=== PATIENT | male | born 1945 | race Caucasian/White ===

== ENCOUNTER 2021-05-23 09:43 | Outpatient (CLI) | payer MEDICARE, SELFPAY ==
--- NOTE | 2021-05-23 10:42 | ECG_ITS ---
Measurements Intervals [place] Rate: 49 P: 60 NM: 201 QRS: 74 QRSD: 90 T: 69 QT: 434 QTc: 394 Interpretive Statements SINUS BRADYCARDIA MINIMAL Q WAVES- INF/LAT LEADS BASELINE ARTIFACT- I, III, AVL ABNORMAL ECG Electronically Signed On 05-23-2021 11:46:47 PERSONAL DEVELOPMENT MENTOR by Rafael Arita D.O.
[2021-05-23 11:42] LABS: Anion Gap 4 mmol/L (8-16); Blood Urea Nitrogen 17 mg/dL (9-20); Calcium 9.3 mg/dL (8.4-10.2); Carbon Dioxide 26 mmol/L (22-30); Chloride 103 mmol/L (98-107); Estimated Glomerular Filt Rate > 60; Glucose 100 mg/dL (65-110); Potassium 4.4 mmol/L (3.4-5.0); Sodium 133 mmol/L (137-145)
[2021-05-23 12:00] LABS: Hemoglobin A1C 5.9 % (<5.7)
== END 2021-05-23 09:44 | disposition home or self-care (01) ==
LOC: ANHSURGERY 09:49
PROVIDERS: Anesthesiology; PCP Family Medicine; Visit Provider Urology
DX: E11.9 Type 2 diabetes mellitus without complications (principal); N52.9 Male erectile dysfunction, unspecified; Z01.818 Encounter for other preprocedural examination; R94.31 Abnormal electrocardiogram [ECG] [EKG]
CPT/HCPCS: 36415; 80048; 83036; 87086; 93005

== ENCOUNTER 2021-05-31 00:50 | Day surgery (SDC) | payer MEDICARE, SELFPAY ==
[2021-05-23 09:59] VITALS: BP 126/60; PULSE 50; RESP 20; TEMP 36.9; O2SAT 99; BMI 24.5
--- NOTE | 2021-05-23 09:59 | PC.NURSE ---
Report to the Outpatient Waiting Room, entrance under the green pavilion located off [facility], at time _1000_ on date _05/31/21_. OR Time: _1200_. - You and your visitor will be asked a series of questions to screen for COVID 19 for your protection. - A mask is required within the hospital. - Only one visitor is allowed at this time. Patient visitors will be guided where to wait when not with patient. Preoperative COVID Testing Requirements: No COVID Test needed if: (proof is required; if not received patient will have Rapid Test prior to entry) - Patient has received COVID Vaccine at least 14 days prior to procedure date or - Patient has positive COVID test result within last 90 days of surgery date. COVID Test needed if above criteria is not met If not COVID vaccinated a COVID test must be conducted within 72 hours of surgery and patient is asked to isolate self from time of testing until procedure. You will go to the [facility] for your COVID testing. The [facility] is located at the corner of [address] [facility]. You will only be called if COVID results are positive and your surgeon may reschedule your elective surgery date. Patients may have clear liquids (water, carbonated beverages, clear teas, apple juice) until 3 hours prior to surgery with a maximum of 20 ounces. (0900 AM) - No food from midnight until time of surgery - Infants may have breast milk until 4 hours before surgery, infant formula 6 hours prior to surgery. - Children will be allowed to drink immediately following surgery. If applicable, please bring a bottle or sippy cup to assist with drinking. Juice, water, soda, and popsicles are readily available. For infants on formula, please bring formula the day of surgery. Pacifiers are allowed. Take the following medications with a SIP of water the morning of surgery: _NONE__ Medications to discontinue per DR. SOLANO - ASPIRIN, MELOXICAM - CALL OFFICE FOR INSTRUCTIONS _ALL VITAMINS/SUPPLEMENTS - 3 DAYS PRIOR TO SURGERY PER ANESTHESIA, LAST DOSE 05/27/21__ Please no make-up, nail samoan, hairspray, perfume, deodorant, or body powder the day of surgery. No jewelry (including any body piercings) or valuables the day of surgery, leave them at home. Please take a shower or bath the night before, or the morning of, surgery with an antibacterial soap. Wear comfortable, loose fitting clothing. Children are encouraged to wear pajamas. - Jewelry must be removed prior to entering the operating room. Rings and piercings that are not removed may be cut off. - The hospital will not accept responsibility for valuables. - Please leave all valuables, including medications, at home the day of surgery. If you are going home after surgery, a licensed wedding transportation driver must drive you home. - NO public transportation without another adult. - We recommend that an adult stay with you for 24 hours following discharge. - We also recommend that you do not drive, make important decision, drink alcoholic beverages, or take any drugs that were not prescribed by your health care provider for at least 24 hours after your discharge time. For Pediatric surgeries, we recommend two adults accompany the child home (only one inside the building at this time). Follow any additional instructions given to you from your surgeon. Telephone instructions given to ___PT and asked if any additional questions and then verbalized understanding. Patient advised to call surgeon office or pre surgery nurse liaison [phone] if any additional questions.
[2021-05-31] VITALS (10 sets, daily range): BP systolic 99–127; BP diastolic 56–75; PULSE 47–57; RESP 10–18; TEMP 36.3–36.6; O2SAT 92–100
--- NOTE | 2021-05-31 07:51 | P.PNAN_ITS ---
Anes - Initial Pre Proc Eval Procedure: Operation Date: 05/31/21 12:00 Proposed Procedures p Insertion Inflatable Penile Implant - Mir Cobos MD Date/Time: 05/31/21 07:51 Surgeon: Mir Cobos MD Pre Op Diagnosis: erectile dysfunction Patient Data Age: 75 Gender: M Height: 1.91 m Weight: 88.9 kg Last Vital Signs Temp 36.9 C 05/23/21 09:59 Pulse 50 L 05/23/21 09:59 Resp 20 05/23/21 09:59 BP 126/60 05/23/21 09:59 Pulse Ox 99 05/23/21 09:59 Allergies Allergy/AdvReac Type Severity Reaction Status Date / Time No Known Allergies Allergy Verified 05/31/21 10:52 Home Medications Medication Instructions Recorded Confirmed Type aspirin 325 mg PO QAM 05/23/21 05/23/21 History atorvastatin 10 mg 3XW 05/23/21 05/23/21 History cyanocobalamin (vitamin B-12) 1,000 mcg PO QAM 05/23/21 05/23/21 History famotidine 20 mg BID 05/23/21 05/23/21 History meloxicam 7.5 mg 3XW 05/23/21 05/23/21 History metformin 500 mg QAM 05/23/21 05/23/21 History oxybutynin chloride 10 mg PO HS 05/23/21 05/23/21 History sildenafil 25 mg PO DAILY 05/23/21 05/23/21 History tamsulosin 0.4 mg PO HS 05/23/21 05/23/21 History Patient hx anesthesia problems: none Family hx anesthesia problems: none Results Review: All pre-operative results and documents have been reviewed as part of the pre-operative evaluation. [facility] Past Medical History Medical History (Updated 05/31/21 @ 07:52 by Von Jay DO) Diabetes type 2, controlled Hyperlipidemia TIA (transient ischemic attack) Social History Social History Smoking packs per day: 1 Smoking cigarettes per day: 20.0 Years smoked: 20 Smoking pack-years: 20.00 Smoking status: Former smoker Tobacco type: cigarettes Second hand tobacco smoke exposure: No Additional smoking assessment comments: STATES QUIT 1990 Alcohol intake: current Drinks per week: 10 Substance use: never Substance use type: does not use Living arrangements: with family Spiritual care concerns: No Anes - Eval Final PreProcedure Day of Procedure 05/31/21 07:51 Patient weight: normal Heart: regular rate and rhythm Lungs: clear to auscultation and normal air movement Airway: Mallampati scale class II Neurological: alert and oriented Last oral intake: >/= 8 hours ASA classification: III Emergent: no Anesthetic plan: proceed Anesthesia type and monitoring: general LMA and standard monitoring Results Review: All pre-operative results and documents have been reviewed as part of the pre-operative evaluation. Informed Consent: The patient's anesthetic plan and its attendant risks and benefits were discussed with the patient/family/POA. Questions were solicited and answers provided to the satisfaction of the patient/family/POA.
[2021-05-31] MEDS: LACTATED RINGERS 1,000 ML 30 ML IV CONT ×2 (10:30→14:32)
[2021-05-31] MEDS: GENTAMICIN SULFATE INJ 445 MG in DEXTROSE 5% 100 ML 100 MG IVPB (10:31)
[2021-05-31 10:35] LABS: Glucose Point of Care 96 mg/dl (65-105)
--- NOTE | 2021-05-31 12:00 | WPDHPUPDATE1 ---
History and Physical Update Update Date/Time: 05/31/21 12:00 Plan AMBICOR (2 piece) penile Implant History and Physical has been reviewed, including an updated exam of the patient. There are NO changes in the patient's condition. Risks, benefits, and alternatives have been discussed and questions answered. Patient agrees to proceed with procedure.
[2021-05-31] MEDS: BUPIVACAINE HCL 0.25% PF 30 ML VIAL INFILTRATE (12:33)
--- NOTE | 2021-05-31 14:54 | P.OP_ITS ---
Procedure Note - Detailed Date of Procedure 05/31/21 Pre-op Diagnosis erectile dysfunction Post-op Diagnosis same Procedure Performed 1. Insertion of 2-piece inflatable penile prosthesis. 2. Artificial erection using pharmacological agent. Surgeon Mir Cobos MD Description of Procedure Informed consent obtained, patient taken to the operating room and given preoperative IV antibiotics with vancomycin and gentamicin. Additionally the patient has been taking oral levofloxacin and done a 3-day wash with Hibiclens. The patient was shaved. He was then prepped with Betadine scrub and paint followed by ChloraPrep. Sterile drapes were placed. We again prepped with ChloraPrep. A 16-Grenadian Samano catheter was inserted with return of clear urine. We then performed a pharmacologically induced erection with dilute lidocaine. There was a symmetric, straight erection. We then made a penoscrotal 3 cm longitudinal incision. We dissected bluntly down to identify the corporal bodies taking great care not to injure the urethra. Stay sutures of 2-0 PDS were placed in the corporal body. We sharply opened the corpora. We then serially dilated up to a 14 Pichardo dilator. We then measured the corpora. Measurements were 10 cm proximally and 12 cm distally. We irrigated and there was no injury. We then performed an identical procedure on the contralateral side. Measurements were 10 cm proximal, 12 cm distal. Dilators were placed into the corpora bilaterally confirming that there was no crossover. We elected to place an AMS 14mm x 20 cm Ambicor device + 1 cm of rear tip extenders, downsizing by 1cm from our measured length given that the 2 piece device has significant rigidity at all times. We again irrigated the corporal bodies. We then inserted the prosthesis. We inflated and the device sat nicely with tips in the mid glans. We then deflated. We then closed the pre-placed 2-0 PDS sutures. We again inflated with an excellent cosmetic result. We then made a subdartos pouch in the midline for the pump placement. It sat nicely in the inferior scrotum. We then closed the hiatus with 2-0 Vicryl suture. We then removed the stay sutures through the glans. We then again irrigated copiously. We closed the scrotal incision with a transverse followed by longitudinal 3-0 Vicryl sutures and then 4-0 Monocryl skin closure. We again inflated the device, it sat nicely, the pump was easily palpable in the inferior scrotum. We left the device deflated. Glue was placed over all incisions. A compressive dressing was placed. Patient was awakened and taken to recovery room in stable condition. IV FLUIDS Per anesthesia. COMPLICATIONS None. EBL Minimal. FOLLOWUP The patient will be discharged home with a Samano catheter overnight. He will remove dressing and catheter tomorrow. Pathology none sent Complications No immediate complications Condition stable Disposition PACU
== END 2021-05-31 17:42 | disposition home or self-care (01) ==
PROVIDERS: PCP Family Medicine; Visit Provider Urology
PROC: (CPT 54405; principal; 2021-05-31 12:00)
DX: N52.9 Male erectile dysfunction, unspecified (principal); E78.5 Hyperlipidemia, unspecified; E11.9 Type 2 diabetes mellitus without complications; Z86.73 Personal history of transient ischemic attack (TIA), and cerebral infarction without residual deficits; Z79.84 Long term (current) use of oral hypoglycemic drugs; Z79.82 Long term (current) use of aspirin; Z87.891 Personal history of nicotine dependence
CPT/HCPCS: 54405; 54235; 36415; 80048; 82948; 83036; 87086; 93005; J1580; J2270; J2405; J2704; J3370; J7030; J7120

== ENCOUNTER 2024-06-03 09:18 | Outpatient (CLI) | payer MEDICARE, SELFPAY ==
--- NOTE | 2024-06-03 09:32 | ECG_ITS ---
Test Date: 2024-06-03 09:52:07 Measurements Intervals [place] Rate: 49 P: 48 PA: 208 QRS: 70 QRSD: 92 T: 64 QT: 413 QTc: 376 Interpretive Statements SINUS BRADYCARDIA WARNING: DATA QUALITY MAY AFFECT INTERPRETATION No previous ECG available for comparison Electronically Signed On 06-04-2024 16:23:36 INTERTYPE OPERATOR by Gilbert Landeros M.D.
[2024-06-03 10:46] LABS: Anion Gap 3 mmol/L (4-12); Blood Urea Nitrogen 24 mg/dL (9-20); Calcium 8.7 mg/dL (8.4-10.2); Carbon Dioxide 28 mmol/L (22-30); Chloride 106 mmol/L (98-107); Estimated Glomerular Filt Rate > 60; Glucose 94 mg/dL (65-110); Potassium 4.6 mmol/L (3.4-5.0); Sodium 137 mmol/L (137-145)
[2024-06-03 13:54] LABS: Hemoglobin A1C 5.9 % (<5.7)
== END 2024-06-03 09:19 | disposition home or self-care (01) ==
LOC: ANHSURGERY 09:24
PROVIDERS: Anesthesiology; PCP Family Medicine; Visit Provider Urology
DX: Z01.818 Encounter for other preprocedural examination (principal); T83.490A Other mechanical complication of implanted penile prosthesis, initial encounter; E11.9 Type 2 diabetes mellitus without complications; E78.00 Pure hypercholesterolemia, unspecified
CPT/HCPCS: 36415; 80048; 83036; 87086; 93005

== ENCOUNTER 2024-06-10 00:31 | Day surgery (SDC) | payer MEDICARE, SELFPAY ==
[2024-06-01 10:44] VITALS: BMI 24.3
--- NOTE | 2024-06-01 11:02 | PC.NURSE ---
Report to the Outpatient Waiting Room, entrance under the green pavilion located off [facility], at time ___9:00AM____ on date ___06/10/24____. Planned Procedure Time: __11:00AM .? Time changes happen often and if your time is changed the preop area will call you the afternoon before. - You and your visitor will be asked to self-screen and do not enter if you have any COVID symptoms. Please call surgeon if you need to reschedule. - A mask is optional within the hospital at this time. Patients may have clear liquids (water, carbonated beverages, clear teas, apple juice) until 3 hours prior to surgery with a maximum of 20 ounces. - No food from midnight until time of surgery and no smoking. This includes no chewing gum, candy or mints. Take only the following medications with a SIP of water on the morning of surgery: NONE DO NOT STOP ANY OF YOUR OTHER PRESCRIPTION MEDICATIONS PRIOR TO SURGERY EXCEPT THE FOLLOWING Medications to discontinue per physician ___HOLD ASPIRIN 7 DAYS PRE-OP PER DR SOLANO- LAST DOSE 06/02/24. HOLD ALL VITAMINS/SUPPLEMENTS 3 DAYS PRE-OP PER ANESTHESIA- LAST DOSE 06/06/24____ Please no make-up, nail turkmen, hairspray, perfume, deodorant, or body powder the day of surgery.? No jewelry (including any body piercings) or valuables the day of surgery, leave them at home.? Please take a shower or bath the night before, or the morning of, surgery with an antibacterial soap.? Wear comfortable, loose fitting clothing.? Children are encouraged to wear pajamas. - Jewelry must be removed prior to entering the operating room.? Rings and piercings that are not removed may be cut off. - The hospital will not accept responsibility for valuables.? - Please leave all valuables, including medications, at home the day of surgery. If you are going home after surgery, a licensed cryogenic transport driver must drive you home.? - NO public transportation without another adult if you receive anesthesia. - We recommend that an adult stay with you for 24 hours following discharge. - We also recommend that you do not drive, make important decision, drink alcoholic beverages, or take any drugs that were not prescribed by your health care provider for at least 24 hours after your discharge time.. Follow any additional instructions given to you from your surgeon. Telephone instructions given to ___PATIENT and asked if any additional questions and then verbalized understanding. Patient advised to call surgeon office or pre surgery nurse liaison [phone] if any additional questions.
[2024-06-10] VITALS (9 sets, daily range): BP systolic 98–129; BP diastolic 57–78; PULSE 43–66; RESP 13–20; TEMP 36.6–36.9; O2SAT 96–100
[2024-06-10 09:35] LABS: Glucose Point of Care 95 mg/dl (65-105)
[2024-06-10] MEDS: VANCOMYCIN 1,250 MG/NS 250 ML 1,250 MG/250 ML BAG 166.67 MG IVPB (09:52)
[2024-06-10] MEDS: LACTATED RINGERS 1,000 ML 30 ML IV CONT ×2 (09:53→14:13)
[2024-06-10] MEDS: GENTAMICIN SULFATE INJ 430 MG in DEXTROSE 5% 100 ML 100 MG IVPB (09:53)
--- NOTE | 2024-06-10 10:03 | WPDHPUPDATE1 ---
History and Physical Update Update Date/Time: 06/10/24 10:03 History and Physical has been reviewed, including an updated exam of the patient. There are NO changes in the patient's condition. Risks, benefits, and alternatives have been discussed and questions answered. Patient agrees to proceed with procedure.
--- NOTE | 2024-06-10 10:13 | P.PNAN_ITS ---
Anes - Initial Pre Proc Eval Procedure: Operation Date: 06/10/24 11:00 Proposed Procedures p Removal and Reinsertion of Penile Prosthesis - Mir Cobos MD Date/Time: 06/10/24 10:13 Surgeon: Mir Cobos MD Pre Op Diagnosis: Malfunction of penile prosthesis Patient Data Age: 78 Gender: M Height: 1.88 m Weight: 90.4 kg Last Vital Signs Temp 36.6 C 06/10/24 09:15 Pulse 51 L 06/10/24 09:15 Resp 16 06/10/24 09:15 BP 129/78 06/10/24 09:15 Pulse Ox 100 06/10/24 09:15 O2 Del Method Room Air 06/10/24 09:15 Allergies Allergy/AdvReac Type Severity Reaction Status Date / Time No Known Allergies Allergy Verified 06/10/24 09:17 Home Medications ?Medication ?Instructions ?Recorded ?Confirmed ?Type aspirin 325 mg tablet 325 mg PO QAM 05/23/21 06/10/24 History atorvastatin 10 mg tablet 10 mg PO 3XW 05/23/21 06/01/24 History cyanocobalamin (vitamin B-12) 1,000 mcg PO QAM 05/23/21 06/10/24 History 1,000 mcg capsule famotidine 20 mg tablet 20 mg PO BID 05/23/21 06/01/24 History meloxicam 7.5 mg tablet 7.5 mg PO 3XW 05/23/21 06/01/24 History metformin 500 mg tablet 500 mg PO QAM 05/23/21 06/01/24 History sildenafil 25 mg tablet 25 mg PO DAILY 05/23/21 06/01/24 History tamsulosin 0.4 mg capsule 0.4 mg PO HS 05/23/21 06/01/24 History Laboratory Tests 06/10/24 09:26 POC Capillary Glucose 95 mg/dl (65-105) Patient hx anesthesia problems: none Family hx anesthesia problems: none Results Review: All pre-operative results and documents have been reviewed as part of the pre- operative evaluation. [facility] Past Medical History Medical History Diabetes type 2, controlled Hyperlipidemia TIA (transient ischemic attack) Surgical History Surgical History (Updated 06/10/24 @ 10:13 by Cem Edmonds MD) History of implantation of penile prosthesis Social History Social History Smoking packs per day: 1 Smoking cigarettes per day: 20.0 Years smoked: 20 Smoking pack-years: 20.00 Smoking status: Former smoker Tobacco type: cigarettes Second hand tobacco smoke exposure: No Additional smoking assessment comments: STATES QUIT 1990 Alcohol intake: current Drinks per week: 10 Substance use: never Substance use type: does not use Living arrangements: with family Spiritual care concerns: No Anes - Eval Final PreProcedure Day of Procedure 06/10/24 10:13 Patient weight: normal Heart: regular rate and rhythm Lungs: clear to auscultation Airway: Mallampati scale class II Neurological: alert and oriented Last oral intake: >/= 8 hours ASA classification: III Emergent: no Anesthetic plan: proceed Anesthesia type and monitoring: general LMA and standard monitoring Results Review: All pre-operative results and documents have been reviewed as part of the pre- operative evaluation. Informed Consent: The patient's anesthetic plan and its attendant risks and benefits were discussed with the patient/family/POA. Questions were solicited and answers provided to the satisfaction of the patient/family/POA.
[2024-06-10] MEDS: NACL 0.9% IRRIG BAG 1,000 ML, VANCOMYCIN HCL 1,000 MG, GENTAMICIN SULFATE INJ 80 MG IRRIGATION (12:20)
[2024-06-10] MEDS: NACL 0.9% IRRIG BAG 1,000 ML, ceFAZolin 1 GM, TOBRAMYCIN SULFATE INJ 40 MG IRRIGATION (12:20)
[2024-06-10] MEDS: ceFAZolin SODIUM 1 GM VIAL (12:35)
[2024-06-10] MEDS: BUPivacaine HCL 0.25% PF 10 ML VIAL 5 ML INFILTRATE (13:58)
[2024-06-10 14:56] LABS: Glucose Point of Care 92 mg/dl (65-105)
[2024-06-10] MEDS: oxyCODONE HCL (*CRX) 5 MG TAB IR PO (15:34)
--- NOTE | 2024-06-10 15:42 | P.OP_ITS ---
Procedure Note - Detailed Date of Procedure 06/10/24 Pre-op Diagnosis Malfunction of penile prosthesis Post-op Diagnosis Same Procedure Performed -2 piece penile prosthesis removal and exchange to 3 piece prosthesis -scrotal exploration -antibiotic washout Surgeon Mir Cobos MD Anesthesia General Description of Procedure Informed consent obtained, patient taken to the operating room and given preoperative IV antibiotics with vancomycin and gentamicin. Additionally the patient has been taking oral levofloxacin and done a 3-day wash with Hibiclens. The patient was shaved. He was then prepped with Betadine scrub and paint followed by ChloraPrep. Sterile drapes were placed. We again prepped with ChloraPrep. A 16-Iranian Samano catheter was inserted with return of clear urine. We then made a penoscrotal 3 cm incision longitudinally using the previous incision site. We dissected bluntly down to identify the corporal bodies taking great care not to injure the urethra. We dissected down into the scrotum identify the previous penile prosthesis pump and then carefully dissected down to the right corporal body. The corpora was then opened for approximately 2cm. The previous cylinder was removed. Stay sutures of 2-0 PDS were placed in the corporal body. We then dilated with a 12 Pichardo dilator. We then measured the corpora. Irrigation was performed and there was no injury. Measurements were 11 cm proximally and 11.5 cm distally. We irrigated and there was no injury. We then performed an identical procedure on the contralateral side. Measurements were11 cm proximal, 11.5 cm distal. Dilators were placed into the corpora bilaterally confirming that there was no crossover. We elected to place an AMS CX device 21 cm + 1.5 cm of rear tip extenders (the previous device was Ambicor 21cm device). We again irrigated the corporal bodies. We then inserted the prosthesis. We inflated using a surrogate reservoir and the device sat nicely with tips in the mid glans. We then deflated. We then closed the pre-placed 2-0 PDS sutures. We again inflated using the surrogate reservoir with an excellent cosmetic result. We then made a right lower quadrant incision for approximately 3 cm over the patient's previous inguinal hernia incision. We bluntly dissected down to the external oblique fascia. The fascia was opened. We then the rectus muscle and created a space superiorly in the sub rectus. We then irrigated copiously. We pre-placed 0 Vicryl sutures. We placed the reservoir in the sub rectus space. We fill it with 110 mL and there was no back pressure. We then left 90mL in the reservoir. Our pre-placed external oblique fascia sutures were closed. We then opened the previous pseudo capsule for the pump and made a new subdartos pouch in the midline for the pump placement. It sat nicely in the inferior scrotum. We then closed the hiatus with 3-0 Vicryl suture. The tubing was then brought up to the abdominal incision. Using the quick connect device, we connected the pump to the reservoir. We then cycled the device again and it functioned nicely. We then removed the stay sutures through the glans. We then again irrigated copiously. We closed the scrotal incision multiple 3-0 Vicryl running sutures followed by a horizontal mattress 3-0 Monocryl for skin closure. The right lower quadrant incision was closed with 2-0 Vicryl to Rocky's, 3-0 Vicryl deep dermal layer and a 4-0 Monocryl subcuticular closure. Glue was placed over all incisions. A compressive dressing was placed. Patient was awakened and taken to recovery room in stable condition. Patient to be discharged home today. He will remove his Samano catheter dressing tomorrow. Complications No immediate complications Condition Stable Disposition PACU
[2024-06-10] MEDS: oxyBUTYnin CHLORIDE 5 MG TABLET PO (16:30)
== END 2024-06-10 16:59 | disposition home or self-care (01) ==
PROVIDERS: PCP Family Medicine; Visit Provider Urology
PROC: (CPT 54410; principal; 2024-06-10 11:00)
DX: T83.490A Other mechanical complication of implanted penile prosthesis, initial encounter (principal); Y83.8 Other surgical procedures as the cause of abnormal reaction of the patient, or of later complication, without mention of misadventure at the time of the procedure; E11.9 Type 2 diabetes mellitus without complications; E78.5 Hyperlipidemia, unspecified; Z86.73 Personal history of transient ischemic attack (TIA), and cerebral infarction without residual deficits; Z79.84 Long term (current) use of oral hypoglycemic drugs; Z87.891 Personal history of nicotine dependence
CPT/HCPCS: 54410; 82948; A9270; C1813; J0690; J1171; J1580; J2003; J2405; J2704; J3010; J3260; J3370; J7030; J7120